=== PATIENT | female | born 1990 | race Caucasian/White ===

== ENCOUNTER 2022-02-03 10:14 | Emergency (ER) | payer BC ==
[~2022-02-03] VITALS: Ht 167.6 cm; Wt 80.5 kg
[2022-02-03] MEDS ORDERED: PROBIOTIC1 EAC1 PO (10:41)
[2022-02-03] MEDS ORDERED: DAILY VALUE1 EACH PO (10:41)
[2022-02-03 10:43] LABS: BASO # 0.01 K/mm3 (0.02-0.10); EOS # 0.01 K/mm3 (0.04-0.40); EOS % 0.1 % (1.0-5.0); HEMATOCRIT 39.6 % (37.0-47.0); HEMOGLOBIN 13.5 g/dL (12.5-16.0); LYMPH# 1.58 K/mm3 (1.50-4.00); MEAN CELL VOLUME 88 fl (78-100); MEAN CORPUSCULAR HEMOGLOBIN 30 pg (27-31); MEAN CORPUSCULAR HGB CONC 34 g/dL (33-37); MEAN PLATELET VOLUME 9.7 fl (7.4-10.4); MONO # 0.64 K/mm3 (0.20-0.80); NEU # 14.84 K/mm3 (1.40-6.50); PLATELET COUNT 265 K/mm3 (130-400); RED BLOOD COUNT 4.52 M/mm3 (4.10-5.30); RED CELL DISTRIBUTION WIDTH 12.3 % (11.5-14.5); WHITE BLOOD COUNT 17.1 K/mm3 (4.8-10.8)
[2022-02-03 10:51] LABS: ALBUMIN 4.1 g/dL (3.5-5.0)
[2022-02-03 10:52] LABS: POTASSIUM 3.6 mmol/L (3.5-5.1)
[2022-02-03 10:53] LABS: CALCIUM 9.3 mg/dL (8.3-10.5)
[2022-02-03 10:54] LABS: TOTAL PROTEIN 7.8 g/dL (6.4-8.3)
[2022-02-03 12:03] LABS: PH-URINE 7.5 (5.0 - 8.0); URINE APPEARANCE CLOUDY; URINE BILIRUBIN NEGATIVE (NEGATIVE); URINE BLOOD NEGATIVE (NEGATIVE); URINE COLOR DK YELLOW; URINE GLUCOSE NEGATIVE (NEGATIVE); URINE KETONE 1+ (NEGATIVE); URINE LEUKOCYTE ESTERASE TRACE (NEGATIVE); URINE NITRATE NEGATIVE (NEGATIVE); URINE PROTEIN(semi-quant) TRACE (NEGATIVE); URINE UROBILINOGEN NORMAL (NORMAL)
[2022-02-03 12:35] VITALS: BP 116/71
== END 2022-02-03 13:00 | disposition short-term general hospital (02) ==
LOC: ED 10:14
PROVIDERS: Nurse Practitioner
DX: K35.80 Unspecified acute appendicitis (principal); Z32.02 Encounter for pregnancy test, result negative
CPT/HCPCS: Q9967